=== PATIENT | male | born 1965 | race Two or more races ===

== ENCOUNTER 2021-10-19 04:27 | Day surgery (SDC) | payer BC ==
[2021-10-15 09:10] VITALS: BMI 25.8
[2021-10-19] MEDS ORDERED: MIDAZOLAM HCL 2 MG/2 ML SINGLE DOSE VIAL ONE (14:02)
[2021-10-19] MEDS ORDERED: PROPOFOL 20 ML ONE (14:02)
[2021-10-19] MEDS ORDERED: KETOROLAC TROMETHAMINE 30 MG/1 ML VIAL ONE (14:09)
[2021-10-19 15:34] VITALS: BP 140/90; PULSE 60; TEMP 97.5
== END 2021-10-19 15:40 | disposition home or self-care (01) ==
LOC: JASU-SURG 04:27
PROVIDERS: ATTEND Urology
PROC: 0TF4XZZ Fragmentation in Left Kidney Pelvis, External Approach (ICD-10-PCS; principal; 2021-10-19 12:30)
DX: N20.0 Calculus of kidney (principal)

== ENCOUNTER 2021-10-29 11:08 | Emergency (ER) | payer BC ==
[2021-10-29 11:34] VITALS: TEMP 98; BMI 26.1
[2021-10-29] MEDS ORDERED: morphine CARPU-JECT 4 MG/1 ML DISP.SYRIN IVPUSH ONE (12:51)
[2021-10-29] MEDS ORDERED: morphine SULFATE 4 MG/ML VIAL ONE (12:54)
[2021-10-29] MEDS ORDERED: ONDANSETRON 4 MG/2 ML VIAL ONE (12:58)
[2021-10-29 13:27] LABS: BASO % 0.3 % (0-2.0); EOS % 0.6 % (0-4.5); HEMATOCRIT 37.5 % (35.4-49); HEMOGLOBIN 12.7 GM/dL (11.7-16.9); LYMPH % 18.7 % (8-40); MCHC 33.9 g/dl (32.0-35.9); MEAN CELL VOLUME 85.4 fl (80-96); MEAN PLT VOLUME 8.2 fl (7.5-11.1); MONO % 7.8 % (3.8-10.2); NEUT % 72.6 % (42.8-82.8); PLATELET COUNT 379 10^3/uL (134-434); RBC 4.39 M/mm3 (4.00-5.60); RDW 12.7 % (11.9-15.9); WHITE BLOOD COUNT 5.7 K/mm3 (4.0-10.0)
[2021-10-29 13:34] LABS: INR 1.06 (0.83-1.09); PROTHROMBIN TIME (PATIENT) 12.2 SEC (9.7-13.0)
[2021-10-29 13:36] LABS: ACTIVATED PTT 29.6 SECONDS (25.2-36.5)
[2021-10-29 13:52] LABS: CALCIUM 9.6 mg/dL (8.5-10.1)
[2021-10-29 13:53] LABS: ALBUMIN 4.4 g/dl (3.4-5.0); BLOOD UREA NITROGEN 15.1 mg/dL (7-18)
[2021-10-29 13:58] LABS: BILIRUBIN,TOTAL 1.1 mg/dL (0.2-1); TOT PROT 7.7 g/dl (6.4-8.2)
[2021-10-29 15:22] VITALS: BP 122/74; PULSE 63
== END 2021-10-29 15:26 | disposition home or self-care (01) ==
LOC: JER 11:08
PROC: 3E033NZ Introduction of Analgesics, Hypnotics, Sedatives into Peripheral Vein, Percutaneous Approach (ICD-10-PCS; principal; 2021-10-29)
DX: I86.1 Scrotal varices (principal); N43.3 Hydrocele, unspecified
CPT/HCPCS: 36415; 76775-TC; 76870-TC; 80053; 85025; 85610; 85730; 86850; 86900; 86901; 99284-25

== ENCOUNTER 2022-10-04 04:11 | Day surgery (SDC) | payer BC ==
[2022-10-01 08:54] VITALS: BMI 25.8
[2022-10-04] MEDS ORDERED: ONDANSETRON 4 MG/2 ML VIAL ONE (12:45)
[2022-10-04] MEDS ORDERED: MIDAZOLAM HCL 2 MG/2 ML SINGLE DOSE VIAL ONE (12:46)
[2022-10-04] MEDS ORDERED: PROPOFOL 20 ML ONE (12:46)
[2022-10-04 16:31] VITALS: RESP 20; TEMP 97.8
[2022-10-04 16:34] VITALS: BP 165/86; PULSE 57
== END 2022-10-04 15:39 | disposition home or self-care (01) ==
LOC: JASU-SURG 04:11
PROVIDERS: ATTEND Urology
PROC: 0TC13ZZ Extirpation of Matter from Left Kidney, Percutaneous Approach (ICD-10-PCS; principal; 2022-10-04 12:30)
DX: N20.0 Calculus of kidney (principal)